=== PATIENT | male | born 1960 | race Caucasian/White ===

== ENCOUNTER 2018-03-17 18:04 | Emergency (ER) | payer OTHER ==
[~2018-03-17] VITALS: Ht 172.7 cm; Wt 67.1 kg
[~2018-03-17 18:04] MED LIST: ATIVAN1 MG PO; FLEXERIL PO; FOLIC ACID1 MG PO; NOHOMEMEDICATIONS; NORCO 5-325 TA1 EACH PO; PEPCID20 MG PO; PREDNISONE 20 M20 M1 PO; ROBAXIN500 MG PO; TRAMADOL 50 MG50 MG PO; VITAMIN B-1100 M1 PO; VITAMIN B-12500 MCG PO; XANAX 0.25 MG0.25 MG PO
[2018-03-17] MEDS ORDERED: XANAX 0.5 MG0.5 MG PO (18:08)
[2018-03-17] MEDS ORDERED: TRAMADOL 50 MG50 MG PO (18:08)
[2018-03-17] MEDS ORDERED: AMBIEN 5 MG TABL5 M1 PO (18:08)
[2018-03-17 19:04] LABS: ABSOLUTE BASOPHILS 0.1 thou/uL (0.0-0.2); ABSOLUTE LYMPHOCYTES 2.3 thou/uL (0.8-5.3); ABSOLUTE MONOCYTES 0.5 thou/uL (0.0-1.2); ABSOLUTE NEUTROPHILS 7.6 thou/uL (1.6-8.1); BASOPHILS 0.5 %; EOSINOPHILS 0.5 %; HEMOGLOBIN 14.8 gm/dL (14.0-18.0); LYMPHOCYTES 22.1 %; MCH 33.1 pg (26.0-34.0); MCHC 34.5 g/dL (28.0-37.0); MCV 95.9 fL (80.0-100.0); MONOCYTES 4.6 %; MPV 8.3 fl. (7.2-11.1); NUCLEATED RBCS 0 /100WBC; PLATELET COUNT* 255 thou/uL (150-400); POLYS 72.3 %; RBC 4.48 mil/uL (4.50-6.00); RDW-CV 15.1 % (10.5-14.5); WBC 10.4 thou/uL (4.0-11.0)
[2018-03-17 19:14] LABS: CALCIUM 8.1 mg/dL (8.5-10.1); CREATININE 0.8 mg/dL (0.6-1.3); POTASSIUM 4.1 mmol/L (3.5-5.1)
[2018-03-17 19:15] LABS: ALBUMIN 3.6 g/dL (3.4-5.0); TOTAL BILIRUBIN 0.2 mg/dL (<0.1-1.0); TOTAL PROTEIN 7.4 g/dL (6.4-8.2)
[2018-03-17 19:23] LABS: ALCOHOL 229 mg/dL (<10); SALICYLATE 4.3 mg/dL (2.8-20.0)
[2018-03-17 19:35] LABS: ACETAMINOPHEN < 2 ug/mL (10-30)
[2018-03-17 20:20] LABS: URINE BILIRUBIN NEGATIVE (Negative); URINE BLOOD NEGATIVE (Negative); URINE CLARITY CLEAR; URINE COLOR YELLOW; URINE GLUCOSE-RANDOM NEGATIVE (Negative); URINE KETONES NEGATIVE (Negative); URINE LEUKOCYTES-REFLEX NEGATIVE (Negative); URINE NITRITE-REFLEX NEGATIVE (Negative); URINE PROTEIN TRACE (Negative); URINE SPECIFIC GRAVITY >= 1.030 (1.005-1.030); URINE UROBILINOGEN 0.2 E.U./dl (0.2-1.0)
[2018-03-17 20:34] LABS: AMP/METHAMP Negative (Negative); BARBITURATES Negative (Negative); BENZODIAZEPINES Negative (Negative); COCAINE Negative (Negative); METHADONE Negative (Negative); OPIATES Negative (Negative); PCP Negative (Negative); THC POSITIVE (Negative)
[2018-03-18 15:30] VITALS: BP 140/76
== END 2018-03-18 15:30 ==
LOC: M.ERS 18:04
PROVIDERS: Emergency Medicine Emergency Medical Services
DX: S61.512A Laceration without foreign body of left wrist, initial encounter (principal); S61.511A Laceration without foreign body of right wrist, initial encounter; R45.851 Suicidal ideations; F17.200 Nicotine dependence, unspecified, uncomplicated; W26.8XXA Contact with other sharp object(s), not elsewhere classified, initial encounter; Y93.89 Activity, other specified; Y92.89 Other specified places as the place of occurrence of the external cause; Y99.8 Other external cause status